=== PATIENT | male | born 1965 | race Two or more races ===

== ENCOUNTER 2023-11-04 14:13 | Emergency (ER) | payer MEDICAID, OTHER ==
[~2023-11-04] VITALS: Ht 190.5 cm; Wt 88.6 kg
[2023-11-04 14:25] VITALS: BP 119/77; PULSE 76; RESP 18; O2SAT 100
== END 2023-11-05 02:24 | disposition home or self-care (01) ==
LOC: ER 14:13 → EDBD 14:13 → ER 15:48
DX: S60.221A Contusion of right hand, initial encounter (principal); I10 Essential (primary) hypertension; E78.5 Hyperlipidemia, unspecified; I25.10 Atherosclerotic heart disease of native coronary artery without angina pectoris; F17.210 Nicotine dependence, cigarettes, uncomplicated; F15.90 Other stimulant use, unspecified, uncomplicated; Z86.73 Personal history of transient ischemic attack (TIA), and cerebral infarction without residual deficits; Z98.890 Other specified postprocedural states; W22.8XXA Striking against or struck by other objects, initial encounter; Y93.89 Activity, other specified; Y92.89 Other specified places as the place of occurrence of the external cause; Y99.8 Other external cause status
CPT/HCPCS: 73120

== ENCOUNTER 2024-10-13 19:09 | Emergency (ER) | payer MEDICAID ==
[~2024-10-13] VITALS: Ht 180.3 cm; Wt 102.3 kg
[2024-10-13] MEDS: TETANUS-DIPTH-ACEL PERTUSSIS 0.5ML SYR Tdap IM ONE (20:00)
[2024-10-13] MEDS: LIDOCAINE 2% TOPICAL JELLY 5 ML URJT TOP ONE (20:00)
--- NOTE | 2024-10-13 20:00 | ED.PDOC ---
Maria Dolores. 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 Patient was reportedly found in his room on the floor with a laceration on the top of his head. Patient was alert, but could not recall how he ended up on the floor. Noted was an empty bottle of liquor on his bed. On arrival to the ER, patient is alert, denies any injury other than on the top of his head, and when asked how he ended up on the floor, states "inebriated." He denies any recent illness, chest pain, shortness a breath, vision changes or new focal weakness. Chief Complaint: Fall Injury Time Seen by MD: 19:36 Primary Care Provider: HALLEY Kelley notes: Nurses Notes, Solar Crew Member Notes, Medications, Allergies Allergies: Coded Allergies: No Known Drug Allergy (Verified Allergy, Unknown, 11/04/23) Home Meds Active Scripts Bacitracin (Bacitracin Oint) 1 Applic Ap, 1 APPLIC TOP TID, #30 GM Apply to wound t.i.d. 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 Past Medical History PAST MEDICAL HISTORY: CAD, CVA, High Lipids, HTN Surgical History: CABG Family History Family History: No family hx of Cancer, No family hx of DM, Family hx of heart tavares Social History Smoker: Cigarettes Alcohol: Denies ETOH Use Drugs: Marijuana Lives In: Home All Other Systems: Reviewed and Negative (Comprehensive systems review obtained and negative except for what is stated in the HPI.) Physical Exam General Appearance: No Apparent Distress HEENT: PERRL/EOMI, Other (Approximate 2.5 cm superficial irregular laceration on the top of the scalp) Neck: Full Range of Motion, Non-Tender, Normal Inspection, Supple Respiratory: Lungs Clear, No Accessory Muscle Use, No Respiratory Distress, Normal Breath Sounds Cardiovascular: No Edema, No JVD, Regular Rate/Rhythm Breast Exam: Deferred Gastrointestinal: Non Tender, Soft Genitalia: Deferred Pelvic: Deferred Rectal: Deferred Extremities: Non-tender, No pedal edema Neurologic: Alert (Oriented x4), Normal Affect, Normal Mood, Other (Chronic Left lower extremity weakness, motor 5/5 all other extremities, sensation grossly intact) Cerebellar Function: NOT DONE Reflexes: NOT DONE Skin: Dry, Normal Color, Warm, Other (Approximate 2.5 cm irregular superficial laceration top of scalp. No bleeding. Mild underlying soft tissue swelling.) Lymphatic: NOT DONE Was a procedure done? Was a procedure done?: No Differential Diagnosis Multiple Trauma: Closed Head Injury, Cardiac Injury, Cerebral Contusion, Spine Injury, Contusion, Encephalopathy, Other (MA, CVA, alcohol/drug intoxication, among others) X-Ray, Labs, Meds, VS Vital Signs Date Time Temp Pulse Resp B/P (MAP) Pulse Ox O2 Delivery O2 Flow Rate FiO2 10/13/24 20:21 66 10/13/24 20:10 97.6 72 16 156/88 (110) 96 97.6 10/13/24 20:10 72 16 96 Room Air* 0 21 10/13/24 19:19 98.6 75 16 131/83 (99) 98 Lab Test 10/13/24 22:30 10/13/24 20:30 10/13/24 19:00 Range/Units Troponin I High Sensitivity Pending 22 </=54 ng/L White Blood Count 11.0 H 4.4-10.8 10^3/uL Red Blood Count 5.14 4.5-5.90 10^6/uL Hemoglobin 16.8 13.5-17.5 g/dL Hematocrit 48.2 41.0-53.0 % Mean Corpuscular Volume 93.8 80.0-100.0 fL Mean Corpuscular Hemoglobin 32.6 H 28.0-32.0 pg Mean Corpuscular Hemoglobin Concent 34.8 32.0-36.0 g/dL Red Cell Distribution Width 14.8 H 11.8-14.3 % Platelet Count 156 140-450 10^3/uL Mean Platelet Volume 11.5 H 6.9-10.8 fL Neutrophils (%) (Auto) 62.2 37.0-80.0 % Lymphocytes (%) (Auto) 28.6 10.0-50.0 % Monocytes (%) (Auto) 4.4 0.0-12.0 % Eosinophils (%) (Auto) 3.6 0.0-7.0 % Basophils (%) (Auto) 1.2 0.0-2.0 % Neutrophils # (Auto) 6.8 1.6-8.6 10 ^3/uL Lymphocytes # (Auto) 3.1 0.4-5.4 10 ^3/uL Monocytes # (Auto) 0.5 0-1.3 10 ^3/uL Eosinophils # (Auto) 0.4 0-0.8 10 ^3/uL Basophils # (Auto) 0.1 0-0.2 10 ^3/uL Nucleated Red Blood Cells 0.1 % Sodium Level 142 136-145 mmol/L Potassium Level 3.5 3.5-5.1 mmol/L Chloride Level 109 H 98-107 mmol/L Carbon Dioxide Level 21 20-31 mmol/L Anion Gap 12 5-15 Blood Urea Nitrogen 11 9-23 mg/dL Creatinine 0.88 0.700-1.30 mg/dL Glomerular Filtration Rate Calc 99 >90 mL/min BUN/Creatinine Ratio 12.5 10.0-20.0 Serum Glucose 97 74-106 mg/dL Calcium Level 9.4 8.7-10.4 mg/dL B-Type Natriuretic Peptide 83.70 0-100 pg/mL Plasma/Serum Blood Alcohol 296.9 H <10 mg/dL Urine Color Colorless Yellow Urine Clarity Clear Clear Urine pH 6.0 5.0-9.0 Urine Specific [place] 1.003 1.001-1.035 Urine Protein Negative Negative Urine Ketones Negative Negative Urine Blood Negative Negative /uL Urine Nitrite Negative Negative Urine Bilirubin Negative Negative Urine Urobilinogen Normal Negative mg/dL Urine Leukocyte Esterase Negative Negative /uL Urine RBC None seen 0 - 3 /hpf Urine Microscopic WBC 0-3 /HPF Urine Squamous Epithelial Cells None seen <5 /hpf Urine Bacteria None seen None Seen /hpf Urine Glucose Normal Normal mg/dL Urine Opiates Screen Neg NEGATIVE Urine Fentanyl Screen Neg NEGATIVE Urine Barbiturates Screen Neg NEGATIVE Urine Phencyclidine Screen Neg NEGATIVE Urine Amphetamines Screen Neg NEGATIVE Urine Benzodiazepines Screen Neg NEGATIVE Urine Cocaine Screen Neg NEGATIVE Urine Cannabinoids Screen Pos NEGATIVE Current Medications Medications (Trade) Dose Ordered Sig/Nataly Route Start Time Stop Time Status Last Admin Sodium Chloride 1,000 ml @ 1,000 mls/hr Q1H ONCE IV 10/13/24 21:30 10/13/24 22:29 DC 10/13/24 21:44 Acetaminophen/ Hydrocodone Bitart ([place] 10/325MG Tab) 1 tab ONCE ONCE PO 10/13/24 21:30 10/13/24 21:41 DC 10/13/24 21:45 PROCEDURE(s): HWOCT - HEAD WITHOUT CONTRAST REASON: head injury ORDER NUMBER(s): [id number], ACCESSION NUMBER(s): [id number] EXAM: CT HEAD WITHOUT CONTRAST INDICATION: head injury TECHNIQUE: CT of the head without intravenous contrast. Radiation Dose Information: CT Dose: CTDI volume is 55.69 mGy. Dose-length product is 1604.63 mGy*cm The dose indicators for CT are the volume Computed Tomography (CT) Dose Index (CTDIvol) and the Dose Length Product (DLP), and are measured in units of mGy a nd mGy-cm, respectively. These indicators are not patient dose, but values generated from the CT scanner acquisition factors. The report includes radiation exposure data for exposures received during this examination. COMPARISON: None FINDINGS: There is no evidence of acute intracranial hemorrhage, extra-axial collection, mass effect, midline shift, herniation or hydrocephalus. The ventricles, sulci and cisterns are age appropriate. The okeefe-white differentiation is intact. Patchy periventricular and subcortical white matter hypoattenuation is nonspecific but may be related to small vessel ischemic disease. The visualized paranasal sinuses and mastoid air cells are clear. The surrounding soft tissues and osseous structures are unremarkable. IMPRESSION: 1. No acute intracranial hemorrhage. 2. No CT findings of territorial ischemia. 3. No CT findings displaced skull fracture. EDURE(s): CS2 - CERVICAL WITHOUT CONTRAST REASON: unwitnessed fall, etoh ORDER NUMBER(s): [id number], ACCESSION NUMBER(s): [id number] EXAM: CT CERVICAL WITHOUT CONTRAST INDICATION: unwitnessed fall, etoh EXAM DATE: 10/13/2024 07:48 PM COMPARISON: None TECHNIQUE: Multiple axial CT images of the cervical spine were obtained using bone algorithm. Axial and coronal reformatting was done. Bone and soft tissue windows were reviewed. Radiation Dose Information: CT Dose: CTDI volume is 23.31 mGy. Dose-length product is 1604.63 mGy*cm FINDINGS: The cervical alignment is intact. No acute cervical spine fracture is identified. The vertebral body heights are intact. No suspicious osseous lesions are identified. Multilevel moderate to severe degenerative changes of the cervical spine. There is no prevertebral soft tissue swelling. IMPRESSION: No evidence of acute cervical spine fracture or traumatic malalignment. All CT scans at this medical facility are performed using dose modulation techniques as appropriate to a performed exam including the following: Automated exposure control was utilized; adjustment of the MA and/or KV according to patient size; and use of iterative reconstruction technique. 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 Vitals unremarkable Exam remarkable for a 2.5 cm irregular superficial laceration on the top of the head Rhythm strip independently interpreted by me: Sinus rhythm, rate 75, no ectopy. CT head without contrast IMPRESSION: 1. No acute intracranial hemorrhage. 2. No CT findings of territorial ischemia. 3. No CT findings displaced skull fracture. CT cervical spine without contrast IMPRESSION: No evidence of acute cervical spine fracture or traumatic malalignment. CBC remarkable for WBC 11, metabolic panel unremarkable, BNP normal, troponin negative, UA unremarkable, alcohol 296.9, drug screen positive cannabinoids Patient treated with the following in the ED: Tdap 0.5 mL IM, wound cleansing with normal saline/Betadine and application of bacitracin, 1 L 0.9 normal saline IV bolus, [place] 10/325 mg 1 tab p.o. On re-evaluation, patient appears to be back to his neurologic baseline. Vitals are stable. Scalp wound is superficial and does not require wound closure. Patient appears stable for discharge back to [facility]. We will arrange for transport in the morning, as far most does not have transport at this hour. Time of 1ST Reevaluation: 20:06 Reevaluation 1ST: Unchanged Patient Education/Counseling: Diagnosis, Treatment Family Education/Counseling: No Family Present Departure 1 Departure Time of Disposition: 21:33 Impression: Primary Impression: Superficial laceration of scalp Qualified Codes: S01.01XA - Laceration without foreign body of scalp, initial encounter Additional Impressions: Alcohol intoxication Qualified Codes: F10.929 - Alcohol use, unspecified with intoxication, unspecified Fall Qualified Codes: W19.XXXA - Unspecified fall, initial encounter Disposition: 03 [facility] Condition: Stable Additional Instructions: Follow-up with your primary doctor in 2 days for wound check in 7-10 days for staple removal. e-Prescriptions Bacitracin (Bacitracin Oint) 1 Applic Ap 1 APPLIC TOP TID, #30 GM Apply to wound t.i.d. until healed Prov: DOMINIC HAMILTON MD 10/13/24 Discharged With: Bell Ringer Critical Care Note Critical Care Time?: No Stability Stability form required: No Heart Score Heart Score: Heart Score Response (Comments) Value History N/A 0 EKG N/A 0 Age N/A 0 Risk Factors N/A 0 Troponin N/A 0 Total 0 I personally scribed for DOMINIC HAMILTON MD ([email or web address]) on 10/13/24 at 20:18. Electronically submitted by Johnie Kohli ([email or web address]). DOMINIC HAMILTON MD Oct 13, 2024 20:00
[2024-10-13 20:08] LABS: Urine Bacteria None Seen /hpf (None Seen)
[2024-10-13 20:10] VITALS: PULSE 72; RESP 16; O2SAT 96
--- NOTE | 2024-10-13 20:22 | DVH ---
EXAM: CT CERVICAL WITHOUT CONTRAST INDICATION: unwitnessed fall, etoh EXAM DATE: 10/13/2024 07:48 PM COMPARISON: None TECHNIQUE: Multiple axial CT images of the cervical spine were obtained using bone algorithm. Axial a nd coronal reformatting was done. Bone and soft tissue windows were reviewed. Radiation Dose Information: CT Dose: CTDI volume is 23.31 mGy. Dose-length product is 1604.63 mGy*cm FINDINGS: The cervical alignment is intact. No acute cervical spine fracture is identified. The vertebral body heights are intact. No suspicious osseous lesions are identified. Multilevel moderate to severe degenerative changes of the cervical spine. There is no prevertebral soft tissue swelling. IMPRESSION: No evidence of acute cervical spine fracture or traumatic malalignment. All CT scans at this medical facility are performed using dose modulation techniques as appropriate t o a performed exam including the following: Automated exposure control was utilized; adjustment of th e MA and/or KV according to patient size; and use of iterative reconstruction technique.
--- NOTE | 2024-10-13 20:24 | DVH ---
EXAM: CT HEAD WITHOUT CONTRAST INDICATION: head injury TECHNIQUE: CT of the head without intravenous contrast. Radiation Dose Information: CT Dose: CTDI volume is 55.69 mGy. Dose-length product is 1604.63 mGy*cm The dose indicators for CT are the volume Computed Tomography (CT) Dose Index (CTDIvol) and the Dose Length Product (DLP), and are measured in units of mGy and mGy-cm, respectively. These indicators are not patient dose, but values generated from the CT scanner acquisition factors. The report includes radiation exposure data for exposures received during this examination. COMPARISON: None FINDINGS: There is no evidence of acute intracranial hemorrhage, extra-axial collection, mass effect, midline s hift, herniation or hydrocephalus. The ventricles, sulci and cisterns are age appropriate. The okeefe-white differentiation is intact. Patchy periventricular and subcortical white matter hypoattenuation is nonspecific but may be related to small vessel ischemic disease. The visualized paranasal sinuses and mastoid air cells are clear. The surrounding soft tissues and osseous structures are unremarkable. IMPRESSION: 1. No acute intracranial hemorrhage. 2. No CT findings of territorial ischemia. 3. No CT findings displaced skull fracture.
[2024-10-13 20:53] LABS: Basophils # (auto) 0.1 10 ^3/uL (0-0.2); Basophils % (auto) 1.2 % (0.0-2.0); Eosinophils # (auto) 0.4 10 ^3/uL (0-0.8); Eosinophils % (auto) 3.6 % (0.0-7.0); Hematocrit 48.2 % (41.0-53.0); Hemoglobin 16.8 g/dL (13.5-17.5); Lymphocytes # (auto) 3.1 10 ^3/uL (0.4-5.4); Lymphocytes % (auto) 28.6 % (10.0-50.0); Mean Corpuscular Hemoglobin 32.6 pg (28.0-32.0); Mean Corpuscular Hgb Conc. 34.8 g/dL (32.0-36.0); Mean Corpuscular Volume 93.8 fL (80.0-100.0); Monocytes # (auto) 0.5 10 ^3/uL (0-1.3); Monocytes % (auto) 4.4 % (0.0-12.0); Neutrophils # (auto) 6.8 10 ^3/uL (1.6-8.6); Neutrophils % (auto) 62.2 % (37.0-80.0); Nucleated Red Blood Cells % 0.1 %; Platelet Count (auto) 156 10^3/uL (140-450); Red Blood Cells 5.14 10^6/uL (4.5-5.90); Red Cell Distribution Width 14.8 % (11.8-14.3)
[2024-10-13 21:02] LABS: Urine Blood Negative /uL (Negative); Urine Clarity Clear (Clear); Urine Color Colorless (Yellow); Urine Protein, UAD Negative (Negative); Urine Specific Gravity 1.003 (1.001-1.035); Urine Squamous Epithelial Cell None Seen /hpf (<5); Urine Urobilinogen Normal (Negative)
[2024-10-13 21:03] LABS: Sodium 142 mmol/L (136-145)
[2024-10-13 21:04] LABS: Anion Gap 12 (5-15); Calcium 9.4 mg/dL (8.7-10.4); Carbon Dioxide 21 mmol/L (20-31)
[2024-10-13 21:09] LABS: BUN/Creatinine Ratio 12.5 (10.0-20.0); Blood Urea Nitrogen 11 mg/dL (9-23); Glucose 97 mg/dL (74-106)
[2024-10-13 21:10] LABS: Opiate Scree,Urine Neg (NEGATIVE)
[2024-10-13 21:10] LABS: Blood Alcohol 296.9 mg/dL (<10)
[2024-10-13 21:15] LABS: Chloride 109 mmol/L (98-107); Potassium 3.5 mmol/L (3.5-5.1)
[2024-10-13 21:16] LABS: Amphetamine Screen, Urine Neg (NEGATIVE); Barbiturate Scree,Urine Neg (NEGATIVE); Benzodiazephine Screen, Urine Neg (NEGATIVE); Cannabinoid Screen, Urine Pos (NEGATIVE); Cocaine Screen, Urine Neg (NEGATIVE); Phencyclidine Screen, Urine Neg (NEGATIVE)
[2024-10-13] MEDS ORDERED: BAC09TP TOP (21:34)
[2024-10-13] MEDS: SODIUM CHLORIDE 0.9% 1,000 ML IV ONE (21:44)
[2024-10-13] MEDS: HYDROcodone-ACET 10/325MG TAB PO ONE (21:45)
--- NOTE | 2024-10-14 05:40 | ECG ---
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
[2024-10-14 07:00] VITALS: BP 155/90; PULSE 70; RESP 16; TEMP 98.6; O2SAT 96
== END 2024-10-14 08:54 | disposition home or self-care (01) ==
LOC: EDBD 19:09 → ER 19:09
DX: S01.01XA Laceration without foreign body of scalp, initial encounter (principal); F10.129 Alcohol abuse with intoxication, unspecified; I25.10 Atherosclerotic heart disease of native coronary artery without angina pectoris; Z86.73 Personal history of transient ischemic attack (TIA), and cerebral infarction without residual deficits; E78.5 Hyperlipidemia, unspecified; I10 Essential (primary) hypertension; Z95.1 Presence of aortocoronary bypass graft; F17.210 Nicotine dependence, cigarettes, uncomplicated; Z79.899 Other long term (current) drug therapy; Z99.3 Dependence on wheelchair; W19.XXXA Unspecified fall, initial encounter; Y93.89 Activity, other specified; Y92.89 Other specified places as the place of occurrence of the external cause; Y99.8 Other external cause status; Y90.9 Presence of alcohol in blood, level not specified
CPT/HCPCS: 36415; 70450; 72125; 80048; 80307; 80320; 81001; 83880; 84484; 85025; 93005; 96360; 99284; J7030; 90715

== ENCOUNTER 2025-04-22 18:06 | Inpatient (IN) | payer MEDICAID ==
[~2025-04-22] VITALS: Ht 185.4 cm; Wt 91.7 kg
[~2025-04-22 18:06] MED LIST: BAC09TP TOP
--- NOTE | 2025-04-22 18:35 | ECG ---
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
--- NOTE | 2025-04-22 18:38 | ED.PDOC ---
Altered Mental Status HPI Comments HPI: 59 year old male presents to the ED via EMS with a chief complaint of ALOC onset today (04/22/25). Per EMS, patient is from [facility] assisted living facility, staff noticed patient began experiencing slurred speech around 14:00, around 17:30 they found patient altered. EMS also states patients BG was 109, pupils were reactive, dilated, patient had a strong ETOH smell, staff stated patient took Boaz for pain. Upon ED arrival, patient is altered, responses to sternal rub. Patient is a poor historian, not answering questions. No other symptoms or modifying factors present at this time. Initial Vitals BP: 115/61 HR: 70 RR: 18 O2: 97% Temp: 98.0 F Past Medical History: CVA,CAD, HLD, HTN, a-fib, alcohol abuse Past Surgical History: CABG Social History: heavy alcohol user, smokes marijuana, smokes cigarettes Medications: Lorazepam, aspirin, Lasix Allergies: NKDA RUBY: ALOC, ETOH, NORCO, FOREMOST, CVA HPI: Poor Historian. Past Medical History: History of alcohol abuse. Past Surgical History: REVIEW OF SYSTEMS: Review of systems limited given the patient's ALOC. History obtained from [facility]. CONSTITUTIONAL: Denies acute: fever, diaphoresis, chills, HEAD: Denies acute: headache, photophobia Eyes: Denies acute: Double vision, vision loss, eye pain, eye discharge. EARS: Denies acute: tinnitus, hearing loss, ear discharge, ear pain, THROAT: Denies acute: sore throat, swelling, difficulty swallowing , pain with swallowi ng, change in voice. NECK: Denies acute: neck pain, neck swelling, stiff neck. HEART: Denies acute : chest pain, palpitations, LUNGS: Denies acute: SOB, wheezing, cough, hemoptysis ABDOMEN: Denies acute: abdominal pain, Nausea, Vomiting, diarrhea, melena , hematemesis, hematochezia SKIN: Denies acute: rash, redness, lesions, itchiness. EXTREMITIES: Denies acute: calf pain, numbness, tingling, weakness, denies pain in extremity. Denies acute: Low back pain. Neuro: Denies acute: focal neurological deficit, motor or sensory focal neurological deficit, tremors, seizure like activity, confusion, dizziness loss of bowel or bladder function, cauda equina like symptoms. : Denies acute: dysuria, hematuria, flank pain, increase in urinary frequency. PSYCH: Denies acute: hallucination, suicidal ideation, homicidal ideation. PHYSICAL EXAM: General: -----no---acute distress, awake and alert. Head: normocephalic, atraumatic. Neck: supple, trachea is midline, no swelling. Throat: Normal phonation. Eyes:, no erythema, no purulent discharge, no proptosis, no icterus. Heart: regular rate, regular rhythm, no significant murmur appreciated. Lungs: no apparent respiratory distress, No wheezing, no rhonchi, no crackles. No stridors Clear to auscultation bilaterally. Abdomen: , non distended, soft, no guarding, no rebound, + bowel sounds. Neuro: Moves to painful stimuli sternal rub. History of stroke with deficit. Skin: no petechia, no purpura, no cyanosis, non-pale, not jaundice. Lower extremities: --no - Pitting edema no deformity, no focal swelling, no calf TTP. Makes eye contact. moves all four extremities. Face: no apparent facial droop. Pupils are reactive to light bilaterally. ED COURSE: DISCLAIMER: This medical document was created using an electronic medical record system with voice recognition software and computerized dictation system. Although this document has been carefully reviewed, there might still be some phonetic and typographical errors. Occasional wrong-word or "sound-alike" substitutions may have occurred due to the inherent limitations of voice recognition software. These areas are purely typographical due to imperfections of the software programs and do not reflect any compromise in the patient's medical care. Please read the chart carefully and recognize, using context, where these substitutions have occurred. Chief Complaint: ALOC Time Seen by MD: 18:25 Primary Care Provider: HALLEY Reviewed Notes: Medications, Allergies Allergies: Coded Allergies: No Known Drug Allergy (Verified Allergy, Unknown, 11/04/23) Home Meds Active Scripts Bacitracin (Bacitracin Oint) 1 Applic Ap, 1 APPLIC TOP TID, #30 GM Apply to wound t.i.d. until healed Prov:DOMINIC HAMILTON MD 10/13/24 Reported Medications Zolpidem Tartrate (Ambien) 10 Mg Tab, 5 MG PO HS, TAB 04/23/25 Trazodone Hcl (Trazodone Hcl) 50 Mg Tab, 50 MG PO HS, MG 04/23/25 Topiramate (Topamax) 50 Mg Tab, 1 TAB PO BID, #60 TAB 1 Refill 04/23/25 Spironolactone (Aldactone) 25 Mg Tab, 1 TAB PO DAILY, #90 TAB 1 Refill 04/23/25 Sertraline Hcl (Zoloft) 25 Mg Tab, 1 TAB PO DAILY, #30 TAB 2 Refills 04/23/25 Pantoprazole Sodium Sesquihydr (Protonix) 40 Mg Tab, 40 MG PO DAILY, #30 TAB 04/23/25 Ondansetron HCl (Ondansetron) 4 Mg Tab, 4 MG PO Q8HPRN, TAB 04/23/25 Metoprolol Succinate (Metoprolol Succinate Er) 25 Mg Tab, 12.5 MG PO DAILY for 30 Days, MG 04/23/25 Melatonin (KP MELATONIN) 3 Mg Tab, 6 MG PO HS PRN for FOR INSOMNIA, TAB 04/23/25 Losartan Potassium (Losartan Potassium) 25 Mg Tab, 12.5 MG PO DAILY for 30 Days, MG 04/23/25 Loperamide Hcl (Anti-Diarrheal) 2 Mg Tab, 2 MG PO Q6HPRN, TAB 04/23/25 Acetaminophen (Acetaminophen) 325 Mg Tab, 650 MG PO Q6HPRN PRN for MILD PAIN for 30 Days, MG 0 Refills 04/23/25 Lorazepam (Ativan) 0.5 Mg Tab, 1 MG PO Q6HPRN, TAB 04/23/25 Loratadine (Claritin) 10 Mg Tab, 1 TAB PO DAILY, #30 TAB 5 Refills 04/23/25 Oxycodone W/ Acetaminophen (Percocet 5/325MG) 1 Tab Tb, 1 TAB PO QID, #120 TAB 04/23/25 Gabapentin (Gabapentin) 300 Mg Cap, 400 MG PO TID for 30 Days, MG 04/23/25 Furosemide (Lasix) 40 Mg Tab, 40 MG PO DAILY, TAB 04/23/25 Fluticasone Propionate (Fluticasone Propionate) 0.05 % Cre, 50 MCG MARJORIE BID for 30 Days, MCG 04/23/25 Atorvastatin Calcium (ATORVASTATIN CALCIUM) 80 Mg Tab, 1 TAB PO HS, #30 TAB 5 Refills 04/23/25 Aspirin (Aspir-Low) 81 Mg Tab, 81 MG PO DAILY for 30 Days, MG 04/23/25 Aripiprazole (Abilify) 2 Mg Tab, 5 MG PO HS, TAB 04/23/25 Information Source: Emergency Med Personnel Mode of Arrival: EMS Severity: Moderate Timing: Hours Duration: Since onset Prehospital treatment: None Quality: Decreased Alertness, Change in Behavior Recent: None History of: CVA Associated Signs and Symptoms: Slurred Speech Past Medical History PAST MEDICAL HISTORY: CAD, CVA, High Lipids, HTN Surgical History: CABG Family History Family History: No family hx of Cancer, No family hx of DM, Family hx of heart tavares Social History Smoker: Cigarettes Alcohol: Heavy Drugs: Marijuana Lives In: Home Was a procedure done? Was a procedure done?: No Differential Diagnosis (ALOC) Differential Diagnosis: Dehydration, Hypoglycemia, DKA, Encephalopathy, Meningitis, Sepsis, Hypoxemia, Seizure, Closed Head Injury, CVA, Mass Lesion, SAH, Drug Overdose, ETOH Intoxication, Heart Failure, Renal Failure, Other (DDX include CVA, TGA, cerebellar ischemia/infarct, carotid stenosis, Intracranial mass/infection/bleed, encephalopathy, electrolyte abnormality, thyroid disease, hydrocephalus, hypoglycemia, drug toxicity, cardiac arrhythmia, seizure, infection in the elderly, Hyperammonemia., kidney failure., sepsis.) X-Ray, Labs, Meds, VS Vital Signs Date Time Temp Pulse Resp B/P (MAP) Pulse Ox O2 Delivery O2 Flow Rate FiO2 04/22/25 20:00 98.6 69 15 121/75 (90) 97 98.6 04/22/25 19:45 Room Air* 0 21 04/22/25 18:50 73 22 122/75 (91) 97 04/22/25 18:21 70 04/22/25 18:06 98.0 70 18 115/61 97 98.0 Lab Test 04/22/25 21:01 04/22/25 19:56 04/22/25 19:46 04/22/25 18:53 Range/Units Lactic Acid Level 2.3 *H 2.5 *H 0.4-2.0 mmol/L Magnesium Level 2.3 2.3 1.6-2.6 mg/dL Troponin I High Sensitivity 20 20 17 </=54 ng/L Vitamin B12 Level 373 211-911 pg/mL Folic Acid 13.85 >5.38 ng/mL Thyroid Stimulating Hormone (TSH) 0.67 0.55-4.78 uIU/mL Urine Color Colorless Yellow Urine Clarity Clear Clear Urine pH 6.0 5.0-9.0 Urine Specific [employer] 1.004 1.001-1.035 Urine Protein Negative Negative Urine Ketones Negative Negative Urine Blood Negative Negative /uL Urine Nitrite Negative Negative Urine Bilirubin Negative Negative Urine Urobilinogen Normal Negative mg/dL Urine Leukocyte Esterase Negative Negative /uL Urine RBC 1 0 - 3 /hpf Urine Microscopic WBC < 1 0-3 /HPF Urine Squamous Epithelial Cells None seen <5 /hpf Urine Bacteria None seen None Seen /hpf Urine Glucose Normal Normal mg/dL Urine Opiates Screen Neg NEGATIVE Urine Fentanyl Screen Neg NEGATIVE Urine Barbiturates Screen Neg NEGATIVE Urine Phencyclidine Screen Neg NEGATIVE Urine Amphetamines Screen Neg NEGATIVE Urine Benzodiazepines Screen Neg NEGATIVE Urine Cocaine Screen Neg NEGATIVE Urine Cannabinoids Screen Pos NEGATIVE White Blood Count 9.1 4.4-10.8 10^3/uL Red Blood Count 5.19 4.5-5.90 10^6/uL Hemoglobin 17.0 13.5-17.5 g/dL Hematocrit 49.5 41.0-53.0 % Mean Corpuscular Volume 95.4 80.0-100.0 fL Mean Corpuscular Hemoglobin 32.7 H 28.0-32.0 pg Mean Corpuscular Hemoglobin Concent 34.3 32.0-36.0 g/dL Red Cell Distribution Width 13.9 11.8-14.3 % Platelet Count 130 L 140-450 10^3/uL Mean Platelet Volume 10.6 6.9-10.8 fL Neutrophils (%) (Auto) 68.2 37.0-80.0 % Lymphocytes (%) (Auto) 22.3 10.0-50.0 % Monocytes (%) (Auto) 4.9 0.0-12.0 % Eosinophils (%) (Auto) 3.7 0.0-7.0 % Basophils (%) (Auto) 0.9 0.0-2.0 % Neutrophils # (Auto) 6.2 1.6-8.6 10 ^3/uL Lymphocytes # (Auto) 2.0 0.4-5.4 10 ^3/uL Monocytes # (Auto) 0.4 0-1.3 10 ^3/uL Eosinophils # (Auto) 0.3 0-0.8 10 ^3/uL Basophils # (Auto) 0.1 0-0.2 10 ^3/uL Nucleated Red Blood Cells 0.1 % Sodium Level 142 136-145 mmol/L Potassium Level 4.3 3.5-5.1 mmol/L Chloride Level 113 H 98-107 mmol/L Carbon Dioxide Level 22 20-31 mmol/L Anion Gap 7 5-15 Blood Urea Nitrogen 5 L 9-23 mg/dL Creatinine 0.90 0.700-1.30 mg/dL Glomerular Filtration Rate Calc 98 >90 mL/min BUN/Creatinine Ratio 5.6 L 10.0-20.0 Serum Glucose 104 74-106 mg/dL Calcium Level 8.5 L 8.7-10.4 mg/dL Total Bilirubin 0.3 0.2-1.0 mg/dL Aspartate Amino Transferase (AST) 57 H 13-40 U/L Alanine Aminotransferase (ALT) 68 H 7-40 U/L Alkaline Phosphatase 92 46-116 U/L B-Type Natriuretic Peptide 83.08 0-100 pg/mL Total Protein 7.2 5.7-8.2 g/dL Albumin 4.0 3.2-4.8 g/dL Plasma/Serum Blood Alcohol 390.2 H <10 mg/dL Current Medications Medications (Trade) Dose Ordered Sig/Nataly Route Start Time Stop Time Status Last Admin Sodium Chloride 1,000 ml @ 1,000 mls/hr Q1H ONCE IV 04/22/25 22:00 04/22/25 22:59 DC 04/22/25 23:[address] [address] Ph: [phone] DIAGNOSTIC IMAGING Diagnostic Imaging Report : [id number] Signed PATIENT: ANGELLA RUBY ACCT: [id number] UNIT: [id number] : 1965 LOC: ER ROOM / BED: / AGE / SEX: 59 / M ADM STATUS: REG ER SERVICE 06 ORDERING PHYSICIAN: STEWART PRECIADO DO PROCEDURE(s): HWOCT - HEAD WITHOUT CONTRAST REASON: ALOC ORDER NUMBER(s): [id number], ACCESSION NUMBER(s): [id number] COMPUTERIZED TOMOGRAPHY OF THE HEAD WITHOUT CONTRAST REASON FOR STUDY: ALOC COMPARISON: CT CERVICAL WITHOUT CONTRAST on DOS: 10/13/24, CT HEAD WITHOUT CONTRAST on DOS: 10/13/24 TECHNIQUE: Helical tomographic scans were obtained through the brain. 2-D coronal and sagittal reformatted images are provided. Radiation optimization: All CT scans at this facility use at least one of these dose optimization techniques: Automated exposure control mA and/or kV adjustment per patient size (includes targeted exams where dose is matched to clinical indication) or iterative reconstruction. RADIATION DOSE: CTDI: 57 mGy DLP: 1022 mGy-cm FINDINGS: No suspicious intracranial hyperdensity to suggest acute blood. There is an old lacunar infarct in the right thalamus. There is no mass effect nor midline shift. There is no hydrocephalus. The suprasellar cistern is intact. The calvarium is intact. The visualized mastoid air cells and paranasal sinuses are clear. IMPRESSION: No acute intracranial abnormality. ATED BY: JEFFREY DIAS MD DICTATED DATE/TIME: 04/22/251942 SIGNED BY: JEFFREY DIAS MD SIGNED DATE/TIME: 04/22/251942 CC: [place] [id number] Ph: [phone] DIAGNOSTIC IMAGING Diagnostic Imaging Report : [id number] Signed PATIENT: ANGELLA RUBY ACCT: [id number] UNIT: [id number] : 1965 LOC: ER ROOM / BED: / AGE / SEX: 59 / M ADM STATUS: REG ER SERVICE 1830 ORDERING PHYSICIAN: STEWART PRECIADO DO PROCEDURE(s): CXRP - CHEST PORTABLE REASON: ALOC ORDER NUMBER(s): [id number], ACCESSION NUMBER(s): [id number] EXAM: XY CHEST PORTABLE HISTORY: ALOC TECHNIQUE: 1 view of the chest COMPARISON: None FINDINGS/IMPRESSION: LUNGS: No pleural effusion, consolidation, or pneumothorax . Inconspicuous possible volume overload. MEDIASTINUM: Normal cardiac size. Sternotomy wires. BONES: No acute osseous abnormality OTHER: None ATED BY: CLAUS JONES MD DICTATED DATE/TIME: 04/22/251924 SIGNED BY: CLAUS JONES MD SIGNED DATE/TIME: 04/22/251924 CC: Time of 1ST Reevaluation: 18:55 Reevaluation 1ST: Unchanged Time of 2ND Reevaluation: 00:00 Reevaluation 2ND: Improved Patient Education/Counseling: Diagnosis, Treatment Family Education/Counseling: No Family Present Comments MDM: patient presented with the above HPI.---altered level of consciou sness---workup was initiated. patient was found with the above mentioned diagnosis. the following medications were ordered: please refer to order lists of meds and tests obtained by myself Dr. Preciado. Patient ED course and VS have been stabilized. Patient has been reassessed in the ED and remained in a stable condition. Pertinent incidental findings were discussed with the patient and/or family. Patient/family voices understanding and is agreeable with plan. Patient has been observed in the ED adequate length of time to insure improvement/stability. Escalation of care considered: Consideration of escalation to observation or admission Patient was ADMITTED to the medicine team for further evaluation and treatment of their presentation. All the reports of any imaging studies that were ordered by myself were reviewed by myself. Departure 1 Departure Time of Disposition: 19:51 Impression: Primary Impression: Altered level of consciousness Additional Impression: Alcohol abuse Disposition: ADMITTED INPATIENT Admit to: Tele Condition: Guarded Discharged With: Self Critical Care Note Critical Care Time?: No Heart Score Heart Score: Heart Score Response (Comments) Value History N/A 0 EKG N/A 0 Age N/A 0 Risk Factors N/A 0 Troponin N/A 0 Total 0 I personally scribed for STEWART PRECIADO DO ([email or web address]) on 04/22/25 at 18:38. Electronically submitted by Melva Grimes ([email or web address]). I personally scribed for STEWART PRECIADO DO ([email or web address]) on 04/22/25 at 18:45. Electronically submitted by Melva Grimes ([email or web address]). I personally scribed for STEWART PRECIADO DO ([email or web address]) on 04/22/25 at 20:16. Electronically submitted by Melva Grimes ([email or web address]). STEWART PRECIADO DO Apr 22, 2025 18:38
[2025-04-22] MEDS: NALOXONE HCL 1MG/ML 2ML SYRINGE IV ONE ×2 (18:58→19:46)
[2025-04-22 19:12] LABS: Hematocrit 49.5 % (41.0-53.0); Hemoglobin 17.0 g/dL (13.5-17.5); Mean Corpuscular Hemoglobin 32.7 pg (28.0-32.0); Mean Corpuscular Volume 95.4 fL (80.0-100.0); Nucleated Red Blood Cells % 0.1 %
--- NOTE | 2025-04-22 19:27 | DVH ---
EXAM: XY CHEST PORTABLE HISTORY: ALOC TECHNIQUE: 1 view of the chest COMPARISON: None FINDINGS/IMPRESSION: LUNGS: No pleural effusion, consolidation, or pneumothorax . Inconspicuous possible volume overload. MEDIASTINUM: Normal cardiac size. Sternotomy wires. BONES: No acute osseous abnormality OTHER: None
[2025-04-22 19:29] LABS: Albumin 4.0 g/dL (3.2-4.8); Alkaline Phosphatase 92 U/L (46-116); Anion Gap 7 (5-15); BUN/Creatinine Ratio 5.6 (10.0-20.0); Carbon Dioxide 22 mmol/L (20-31); Glucose 104 mg/dL (74-106); Magnesium 2.3 mg/dL (1.6-2.6); Potassium 4.3 mmol/L (3.5-5.1); Sodium 142 mmol/L (136-145); Total Protein 7.2 g/dL (5.7-8.2)
[2025-04-22 19:30] LABS: Alanine Aminotransferase 68 U/L (7-40); Bilirubin, Total 0.3 mg/dL (0.2-1.0); Blood Urea Nitrogen 5 mg/dL (9-23); Calcium 8.5 mg/dL (8.7-10.4); Chloride 113 mmol/L (98-107)
[2025-04-22 19:40] LABS: Lactic Acid w/Reflex 2.5 mmol/L (0.4-2.0)
--- NOTE | 2025-04-22 19:45 | DVH ---
COMPUTERIZED TOMOGRAPHY OF THE HEAD WITHOUT CONTRAST REASON FOR STUDY: ALOC COMPARISON: CT CERVICAL WITHOUT CONTRAST on DOS: 10/13/24, CT HEAD WITHOUT CONTRAST on DOS: 10/13/24 TECHNIQUE: Helical tomographic scans were obtained through the brain. 2-D coronal and sagittal refor matted images are provided. Radiation optimization: All CT scans at this facility use at least one of these dose optimization techniques: Automated exposure control mA and/or kV adjustment per patient s ize (includes targeted exams where dose is matched to clinical indication) or iterative reconstructio n. RADIATION DOSE: CTDI: 57 mGy DLP: 1022 mGy-cm FINDINGS: No suspicious intracranial hyperdensity to suggest acute blood. There is an old lacunar in farct in the right thalamus. There is no mass effect nor midline shift. There is no hydrocephalus. T he suprasellar cistern is intact. The calvarium is intact. The visualized mastoid air cells and paran catracho sinuses are clear. IMPRESSION: No acute intracranial abnormality.
[2025-04-22 20:17] LABS: Urine Protein, UAD Negative (Negative)
[2025-04-22 20:48] LABS: Opiate Scree,Urine Neg (NEGATIVE)
[2025-04-22 20:49] LABS: Amphetamine Screen, Urine Neg (NEGATIVE); Barbiturate Scree,Urine Neg (NEGATIVE); Benzodiazephine Screen, Urine Neg (NEGATIVE); Cannabinoid Screen, Urine Pos (NEGATIVE); Cocaine Screen, Urine Neg (NEGATIVE); Phencyclidine Screen, Urine Neg (NEGATIVE)
--- NOTE | 2025-04-22 23:40 | DVHHPRES ---
History of Present Illness Resident Creating Document: MY FERGUSON RESIDENT History of Present Illness Mio Mcgill is a 59-year-old male with past medical history of hypertension, history of multiple strokes, hyperlipidemia, alcohol use disorder. Patient is altered and only alert to time, person but not to place. Patient was asking where he was. Patient is a poor historian. But he stated that his last drink was 2 days ago. Patient's CIWA score was 16. Liver ultrasound showed Hepatic steatosis. As per ED physician 59 year old male presents to the ED via EMS with a chief complaint of ALOC onset today (04/22/25). Per EMS, patient is from [facility] facility, staff noticed patient began experiencing slurred speech around 14:00, around 17:30 they found patient altered. EMS also states patients BG was 109, pupils were reactive, dilated, patient had a strong ETOH smell, staff stated patient took [place] for pain. Upon ED arrival, patient is altered, responses to sternal rub. Patient is a poor historian, not answering questions. Patient is admitted for further management. Past surgical history: Unable to take history Social history: Patient admitted to drinking alcohol, smoking weed, cigarettes PCP: Review of Systems Review of Systems Review of system could not be done because patient is confused Allergies: Coded Allergies: No Known Drug Allergy (Verified Allergy, Unknown, 11/04/23) Exam Vital Signs Vital Signs Date Time Temp Pulse Resp B/P (MAP) Pulse Ox O2 Delivery O2 Flow Rate FiO2 04/22/25 20:00 98.6 69 15 121/75 (90) 97 98.6 04/22/25 19:45 Room Air* 0 21 Exam General: Patient alert to time and person not to place A/O x2 HEENT: Normocephalic, atraumatic, moist mucous membranes Respiratory/pulmonary: Clear lungs bilaterally, vesicular murmurs present in almost all lung perera, no associated crackles or wheezes. Cardiovascular: Normal heart sounds S1 and S2 with no associated murmurs Abdomen: Abdomen nondistended, there is no pain to palpation in any of the abdominal quadrants, no palpable masses. Extremities: There is no peripheral edema present at the lower extremities. Peripheral Pulses: 3+ Radial (R). 3+ Radial (L). 3+ Dorsalis pedis (R). 3+ Dorsalis pedis(L) Skin: No rashes or pruritus, there is no sacral edema present at this time. Neurological: Intact cranial nerves with no focal neurologic deficits Labs/Xrays Labs Test 04/22/25 21:01 04/22/25 19:56 04/22/25 18:53 Range/Units Lactic Acid Level 2.3 *H 0.4-2.0 mmol/L Troponin I High Sensitivity 20 </=54 ng/L Urine Color Colorless Yellow Urine Clarity Clear Clear Urine pH 6.0 5.0-9.0 Urine Specific [employer] 1.004 1.001-1.035 Urine Protein Negative Negative Urine Ketones Negative Negative Urine Blood Negative Negative /uL Urine Nitrite Negative Negative Urine Bilirubin Negative Negative Urine Urobilinogen Normal Negative mg/dL Urine Leukocyte Esterase Negative Negative /uL Urine RBC 1 0 - 3 /hpf Urine Microscopic WBC < 1 0-3 /HPF Urine Squamous Epithelial Cells None seen <5 /hpf Urine Bacteria None seen None Seen /hpf Urine Glucose Normal Normal mg/dL Urine Opiates Screen Neg NEGATIVE Urine Fentanyl Screen Neg NEGATIVE Urine Barbiturates Screen Neg NEGATIVE Urine Phencyclidine Screen Neg NEGATIVE Urine Amphetamines Screen Neg NEGATIVE Urine Benzodiazepines Screen Neg NEGATIVE Urine Cocaine Screen Neg NEGATIVE Urine Cannabinoids Screen Pos NEGATIVE White Blood Count 9.1 4.4-10.8 10^3/uL Red Blood Count 5.19 4.5-5.90 10^6/uL Hemoglobin 17.0 13.5-17.5 g/dL Hematocrit 49.5 41.0-53.0 % Mean Corpuscular Volume 95.4 80.0-100.0 fL Mean Corpuscular Hemoglobin 32.7 H 28.0-32.0 pg Mean Corpuscular Hemoglobin Concent 34.3 32.0-36.0 g/dL Red Cell Distribution Width 13.9 11.8-14.3 % Platelet Count 130 L 140-450 10^3/uL Mean Platelet Volume 10.6 6.9-10.8 fL Neutrophils (%) (Auto) 68.2 37.0-80.0 % Lymphocytes (%) (Auto) 22.3 10.0-50.0 % Monocytes (%) (Auto) 4.9 0.0-12.0 % Eosinophils (%) (Auto) 3.7 0.0-7.0 % Basophils (%) (Auto) 0.9 0.0-2.0 % Neutrophils # (Auto) 6.2 1.6-8.6 10 ^3/uL Lymphocytes # (Auto) 2.0 0.4-5.4 10 ^3/uL Monocytes # (Auto) 0.4 0-1.3 10 ^3/uL Eosinophils # (Auto) 0.3 0-0.8 10 ^3/uL Basophils # (Auto) 0.1 0-0.2 10 ^3/uL Nucleated Red Blood Cells 0.1 % Sodium Level 142 136-145 mmol/L Potassium Level 4.3 3.5-5.1 mmol/L Chloride Level 113 H 98-107 mmol/L Carbon Dioxide Level 22 20-31 mmol/L Anion Gap 7 5-15 Blood Urea Nitrogen 5 L 9-23 mg/dL Creatinine 0.90 0.700-1.30 mg/dL Glomerular Filtration Rate Calc 98 >90 mL/min BUN/Creatinine Ratio 5.6 L 10.0-20.0 Serum Glucose 104 74-106 mg/dL Calcium Level 8.5 L 8.7-10.4 mg/dL Magnesium Level 2.3 1.6-2.6 mg/dL Total Bilirubin 0.3 0.2-1.0 mg/dL Aspartate Amino Transferase (AST) 57 H 13-40 U/L Alanine Aminotransferase (ALT) 68 H 7-40 U/L Alkaline Phosphatase 92 46-116 U/L B-Type Natriuretic Peptide 83.08 0-100 pg/mL Total Protein 7.2 5.7-8.2 g/dL Albumin 4.0 3.2-4.8 g/dL Plasma/Serum Blood Alcohol 390.2 H <10 mg/dL SEPSIS Sepsis Screen Date sepsis recognized/suspect: Apr 22, 2025 Time Sepsis recognized/suspect: 1805 Recent Procedure: No On Antibiotic Therapy: No Respiratory Rate >20: No Heart Rate >90: No Temp<36 C (96.8 F) or >38.3 C: No SBP <90 or MAP <65 mmHG: No New Acute Mental Status Change: No Is the patient on CPAP, BIPAP,: No Physician Orders Expediter (04/22/25 ) Chest Portable (04/22/25 18:30) Head Without Contrast (04/22/25 19:07) Insert Man Catheter QSHIFT (04/22/25 19:09) Admit (04/22/25 23:29) Allergies (04/22/25 23:29) Fall Risk Precautions In Place QSHIFT (04/22/25 23:29) Complete Blood Count (04/23/25 04:00) Comprehensive Metabolic Panel (04/23/25 04:00) Condition: Serious (04/22/25 23:29) Thiamine Inj (04/22/25 23:45) Drug Screen (04/22/25:34) Urinalysis (04/22/25:34) Magnesium (04/22/25:34) Folic Acid 1mg Iv Daily (04/22/25 23:45) Ativan 1mg Iv Stat (04/22/25:45) Ativan 1mg Iv Q2hr Prn (04/22/25 23:45) Etoh Withdrawal Assessment (04/22/25 23:34) Etoh Withdrawal Assessment NOW (04/22/25 23:34) Vital Signs Date Time Temp Pulse Resp B/P (MAP) Pulse Ox O2 Delivery O2 Flow Rate FiO2 04/22/25 20:00 98.6 69 15 121/75 (90) 97 98.6 04/22/25 19:45 Room Air* 0 21 04/22/25 18:50 73 22 122/75 (91) 97 04/22/25 18:21 70 04/22/25 18:06 98.0 70 18 115/61 97 98.0 Laboratory Tests Test 04/22/25 18:53 04/22/25 21:01 Lactic Acid Level 2.5 mmol/L (0.4-2.0) *H 2.3 mmol/L (0.4-2.0) *H White Blood Count 9.1 10^3/uL (4.4-10.8) Medications Medications Dose Ordered Sig/Nataly Route Start Time Stop Time Status Last Admin Dose Admin Naloxone HCl 2 mg ONCE ONCE IV 04/22/25 18:30 04/22/25 18:31 DC 04/22/25 18:58 2 MG Assessment/Plan Assessment/Plan Assessment/plan # toxic encephalopathy due to acute alcohol intoxication Head CT Serum alcohol levels UDS # acute alcohol intoxication Thiamine Folic acid Banana bag # acute alcohol withdrawal CIWA score 16 IV Ativan scheduled # transaminitis Liver ultrasound # lactic acidosis Monitor labs # recurrent strokes Echo EKG Continue aspirin and statin # coronary artery disease status post CABG Continue aspirin and statin EKG Echo # history of atrial fibrillation - currently regular rhythm 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 Patel, patient and nurse Plan discussed with: Patient My Orders Orders - MY FERGUSON RESIDENT Procedure Category Date Status Time Admit ADMIT 04/22/25 Transmitted 23:29 Allergies [facility] [place] 04/22/25 In Process 23:29 Fall Risk Precautions [facility] [place] 04/22/[address] 23:29 Complete Blood Count LAB 04/23/25 Verified 04:00 Comprehensive LAB 04/23/25 Verified Metabolic Panel 04:00 Condition: Serious [facility] [place] 04/22/25 In Process 23:29 Thiamine Inj [facility] 04/22/25 Verified 23:45 Drug Screen LAB 04/22/25 Verified 23:34 Urinalysis LAB 04/22/25 Verified 23:34 Magnesium LAB 04/22/25 Verified 23:34 Folic Acid 1mg Iv PHA 04/22/25 Verified Daily 23:45 Ativan 1mg Iv Stat [facility] 04/22/25 Verified 23:45 Ativan 1mg Iv Q2hr Prn [facility] 04/22/25 Verified 23:45 Etoh Withdrawal [facility] [place] 04/22/25 Verified Assessment 23:34 Etoh Withdrawal [facility] [place] 04/22/25 Verified Assessment 23:34 Date of Service: Apr 22, 2025 Billing Provider: PEDRO PATEL MD Common Visit Codes: [id number] INP/OBS CARE (HIGH) Secondary Visit Codes: [id number] CARE PLAN 30 MINUTES MY FERGUSON RESIDENT Apr 22, 2025 23:40 ALICJA NIEVES RESIDENT Apr 23, 2025 08:15
[2025-04-22] MEDS ORDERED: LORazepam 2MG/ML-1ML VIAL IV PRN (23:45)
[2025-04-22] MEDS: SODIUM CHLORIDE 0.9% 1,000 ML IV ONE (23:45)
[2025-04-23] VITALS (10 sets, daily range): BP systolic 127–193; BP diastolic 78–105; PULSE 63–99; RESP 16–20; TEMP 97.7–99.1; O2SAT 94–98
[2025-04-23] MEDS: THIAMINE 100mg/ml INJ (200mg/2ml VIAL) IV ONE ×2 (00:09→11:20)
[2025-04-23] MEDS: LORazepam 2MG/ML-1ML VIAL IV ONE (00:09)
[2025-04-23] MEDS: FOLIC ACID 1 MG in D5W 5% 50 ML INJ ONE ×2 (00:09→13:49)
[2025-04-23] MEDS: FOLIC ACID 1 MG, MAGNESIUM SULF SDV 50% 8 MEQ, MULTIPLE VITAMIN 10 ML, THIAMINE INJ 100... INJ SCH (00:30)
[2025-04-23] MEDS ORDERED: LORazepam 2MG/ML-1ML VIAL IV PRN (00:30)
[2025-04-23] MEDS: ATORVASTATIN 20 MG TAB PO ONE (00:36)
--- NOTE | 2025-04-23 02:09 | DVH ---
INDICATION: alcoholic liver disease TECHNIQUE: Multiple real-time sonographic images were obtained of the right upper quadrant. COMPARISON: None FINDINGS: The liver demonstrates diffusely increased echotexture without focal mass lesions. The live r measures 14.6 cm. Normal hepatopetal portal flow identified. No evidence of abdominal ascites or pl eural effusion. There is no intrahepatic or extrahepatic ductal dilatation. The common duct was not adequately visual ized. The gallbladder is without evidence of stone or sludge. The gallbladder wall measures 0.3 cm and is w ithin normal limits. The right kidney measures 12.1 cm. The right kidney is normal in contour, size, and shape. The echoge nicity is normal. There is no hydronephrosis. The pancreas is not well visualized due to overlying bowel gas. IMPRESSION: 1. Hepatic steatosis. Otherwise, unremarkable right upper quadrant abdominal ultrasound.
[2025-04-23 08:14] LABS: Hematocrit 46.0 % (41.0-53.0); Hemoglobin 16.0 g/dL (13.5-17.5); Mean Corpuscular Hemoglobin 32.7 pg (28.0-32.0); Mean Corpuscular Volume 93.8 fL (80.0-100.0); Nucleated Red Blood Cells % 0.0 %
[2025-04-23 08:31] LABS: Albumin 4.0 g/dL (3.2-4.8); Alkaline Phosphatase 86 U/L (46-116); Anion Gap 9 (5-15); BUN/Creatinine Ratio 12.7 (10.0-20.0); Carbon Dioxide 20 mmol/L (20-31); Glucose 94 mg/dL (74-106); Potassium 4.0 mmol/L (3.5-5.1); Total Protein 7.0 g/dL (5.7-8.2)
[2025-04-23 08:32] LABS: Alanine Aminotransferase 68 U/L (7-40); Blood Urea Nitrogen 8 mg/dL (9-23); Calcium 8.3 mg/dL (8.7-10.4); Chloride 118 mmol/L (98-107); Sodium 147 mmol/L (136-145)
[2025-04-23 08:48] LABS: Bilirubin, Total 0.3 mg/dL (0.2-1.0)
[2025-04-23] MEDS ORDERED: SODIUM CHLORIDE 0.9% 1,000 ML IV SCH (10:15)
[2025-04-23] MEDS: PANTOPRAZOLE 40 MG TAB PO SCH (10:44)
[2025-04-23] MEDS: D5W/SOD CHL 0.45% 1,000 ML IV SCH (11:21)
[2025-04-23 12:14] LABS: Lactic Acid w/Reflex 2.5 mmol/L (0.4-2.0)
--- NOTE | 2025-04-23 13:06 | DVHPNRES ---
Progress Note Date Seen: Apr 23, 2025 Resident Creating Document: LUIGI THOMAS RESIDENT Medical Necessity Reason Pt with a Central, PICC or Fol: No Subjective Review of Systems Patient is 59 years old male with past medical history of hypertension, history of multiple stroke, hyperlipidemia, alcohol use disorder was brought in from [facility] assisted living facility due to altered mental status.As per ED physician 59 year old male presents to the ED via EMS with a chief complaint of ALOC onset today (04/22/25). Per EMS, patient is from [facility] assisted living facility, staff noticed patient began experiencing slurred speech around 14:00, around 17:30 they found patient altered. EMS also states patients BG was 109, pupils were reactive, dilated, patient had a strong ETOH smell, staff stated patient took [place] for pain. Upon ED arrival, patient is altered, responses to sternal rub. Patient is a poor historian, not answering questions.Lab workup revealed lactic acidosis with a lactic acid 2.5> 2.3> 2.5, transaminitis with AST 57, ALT 68. UDS positive for cannabinoids, plasma alcohol 390. Urinalysis negative for UTI. CTA negative for acute intracranial abnormality. Ultrasound of the liver revealed hepatic steatosis. CXR no acute abnormality. Echo 2D revealed LVEF 50%, moderate LVH. Left atrial enlarged. PMH-CVA,CAD, status post CABG, HLD, HTN, A-fib, alcohol abuse PSH- CABG Allergy- NKDA Personal History/ Social History- heavy alcohol user, smokes marijuana, smokes cigarettes Cardiovascular- deny acute chest pain or shortness of breath or cough or palpitation Respiratory denies cough or short of breath or wheezing Gastrointestinal- denies any rectal bleeding, nausea or vomiting Musculoskeletal-denies acute joint swelling or tenderness or redness Neurological- denies acute dysarthria, dysphagia, change in vision Psychiatry- denies depression or SI or HI Skin- denies acute rash or purpura Patient was seen today at bedside, less than chart reviewed. Patient is awake and alert today, reported he had vodka yesterday and also use marijuana. Patient is alert and oriented x3 today. Patient reported feeling some anxiety and has had tremor. Lab workup revealed lactic acidosis with a lactic acid 2.5> 2.3> 2.5, transaminitis with AST 57, ALT 68. UDS positive for cannabinoids, plasma alcohol 390. Urinalysis negative for UTI. Objective vital signs Vital Sign Date Time Temp Pulse Resp B/P (MAP) Pulse Ox O2 Delivery O2 Flow Rate FiO2 04/23/25 12:00 81 20 146/92 (110) 95 04/23/25 07:30 Room Air* 0 21 04/23/25 07:30 98.4 98.4 Total Intake and Output 04/22/25 04/22/25 04/23/25 15:00 23:00 07:00 Intake Total 1000 ml Output Total 2200 ml Balance -1200 ml medications Current Medications Medications Dose Ordered Sig/Nataly Route Start Time Stop Time Status Last Admin Dose Admin Lorazepam 1 mg Q2HPRN PRN IV 04/22/25 23:45 Lorazepam 1 mg Q5MINP PRN IV 04/23/25 00:30 Aspirin 81 mg DAILY PO 04/23/25 10:00 04/23/25 10:13 81 MG Atorvastatin Calcium 40 mg HS PO 04/23/25 22:00 Enoxaparin Sodium 40 mg DAILY SC 04/24/25 10:00 UNV Pantoprazole Sodium 40 mg DAILY@0600 PO 04/23/25 10:30 04/23/25 10:44 40 MG Dextrose/Sodium Chloride 1,000 ml @ 125 mls/hr Q8H IV 04/23/25 10:45 04/23/25 11:21 125 MLS/HR Examination General examination- HEENT- PEERLA, no acute nasal discharge Cardiovascular- S1-S2 audible, rate and rhythm regular, no murmur Respiratory- CTAB, no wheeze or rhonchi Gastrointestinal-nontender, bowel sound+. Nondistended Musculoskeletal-no acute joint swelling or tenderness or redness Lower extremity- Neurological- cranial nerves intact, no acute dysarthria or dysphagia Psychiatry- denies depression or SI or HI Skin- no acute rash or purpura laboratory and microbiology Laboratory Tests 04/23/25 07:44 Test 04/23/25 07:44 Range/Units Serum Glucose 94 74-106 mg/dL Problem List/Assessment/Plan Problem List/Assessment/Plan Assessment and plan # acute metabolic encephalopathy likely due to alcohol intoxication # acute toxic encephalopathy due to above # acute alcohol intoxication with alcohol poisoning -serum alcohol level>350 -patient on [facility] protocol -continue thiamine and folic acid as prescribed -continue IV fluid as prescribed -monitor vitals # CAD, status post CABG # history of CVA # hypertension # hyperlipidemia - Echo 2D revealed LVEF 50%, moderate LVH. Left atrial enlarged. -continue aspirin 81 mg p.o. daily -atorvastatin 40 mg p.o. q.h.s. -nifedipine XL 30 mg p.o. daily -metoprolol 12.5 mg p.o. daily -monitor vitals # history of atrial fibrillation -metoprolol 12.5 mg p.o. daily # substance use disorder -UDS positive for marijuana -patient was counseled about the effect of marijuana on health Goals of care, Code status full code ; discussed with >15 minutes PUD prophylaxis: Pantoprazole DVT prophylaxis: Lovenox Plan discussed with Dr. Ghosh , nursing staff, Total time spent on patient evaluation, chart review, assessment and plan, discussion discussion >35 minutes Plan discussed with: Patient, Other (RN) My Orders My Orders Orders - LUIGI THOMAS Procedure Category Date Status Time Vitamin B1 (Thiamine) LAB 04/23/25 In Process 10:26 Enoxaparin Sodium PHA 04/24/25 Logged (Lovenox) 10:00 Pantoprazole Tablet PHA 04/23/25 In Process (Protonix Tablet) 10:30 D5w/Sod Chl 0.45% PHA 04/23/25 In Process (D5w 1/2ns) 10:45 Sodium Chloride 0.9% PHA 04/23/25 Logged 12:30 Lactic Acid W/ Reflex LAB 04/23/25 Logged Order 19:00 Cardiac DIET 04/23/25 Transmitted Diet-2gna,Lofat,Lochol Lunch LUIGI THOMAS RESIDENT Apr 23, 2025 13:06
--- NOTE | 2025-04-23 13:52 | DVHSR ---
APPROVED REPORT EXAM: Two-dimensional and M-mode echocardiogram with Doppler and color Doppler. Blood Pressure: 135/83 mmHg INDICATION SOB RISK FACTORS Height: 71, Weight: 200 DIMENSIONS LVDd5.0 (3.8-5.7cm)LA (2D)3.8 (1.9-4.0cm)Aortic Root3.7 (2.0-3.7cm) LVDs3.7 (2.5-4.0cm)LA (MM) (1.9-4.0cm)Aortic Cusp Exc1.8 (1.5-2.0cm) EF (%) 50.0 (55-70%)Rt. Atrium4.3 (1.9-4.0cm)Asc. Aorta cm Mitral Valve MitralMitral Stenosis E wave0.90m/sMV Mean GR.mmHg A wave1.29m/sMV Peak GR.mmHg E/A ratio0.72D MVAcm2 DECEL [id number] 1/2 Qgie03sx IVRTmsDop MVA3.31cm2 Aortic Valve Aortic ValveAortic Stenosis V11.18m/[employer] Mean GR.3mmHg V21.32m/[employer] Peak GR.7mmHg LVOT Diameter1.9 (1.8-2.4cm)Doppler AVA2.53cm2 Pulmonic Valve V21.20m/s Conclusion lvef 50% low normal lv function cannot rule out Wall motion changes miloderate lvh normal rv function left atrium enlarged no severe valve abnormaliteis noted
[2025-04-23] MEDS: hydrALAZINE HCL 20 MG/ML VL IV PRN (14:29)
[2025-04-23] MEDS: SODIUM CHLORIDE 0.9% 1,000 ML IV ONE (14:30)
[2025-04-23] MEDS ORDERED: LORA-622 PO (15:43)
[2025-04-23] MEDS ORDERED: FLUT0.05 NAS (15:43)
[2025-04-23] MEDS ORDERED: FURO1TAB31 PO (15:43)
[2025-04-23] MEDS ORDERED: ACET-1881 PO (15:43)
[2025-04-23] MEDS ORDERED: GABA-1250 PO (15:43)
[2025-04-23] MEDS ORDERED: ATOR-47 PO (15:43)
[2025-04-23] MEDS ORDERED: LORA-655 PO (15:43)
[2025-04-23] MEDS ORDERED: LOPE2TAB78 PO (15:43)
[2025-04-23] MEDS ORDERED: PERCOT PO (15:43)
[2025-04-23] MEDS ORDERED: ASPI-543 PO (15:43)
[2025-04-23] MEDS ORDERED: ARIP2TAB PO (15:43)
[2025-04-23] MEDS ORDERED: LOSA-533 PO (15:51)
[2025-04-23] MEDS ORDERED: METO25TA93 PO (15:51)
[2025-04-23] MEDS ORDERED: ONDA-155 PO (15:51)
[2025-04-23] MEDS ORDERED: MELA3TAB27 PO (15:51)
[2025-04-23] MEDS ORDERED: PANT40TA2 PO (15:51)
[2025-04-23] MEDS ORDERED: ZOLP10TA PO (15:52)
[2025-04-23] MEDS ORDERED: TOPI50TA32 PO (15:52)
[2025-04-23] MEDS ORDERED: SPIR25TA PO (15:52)
[2025-04-23] MEDS ORDERED: TRAZ-227 PO (15:52)
[2025-04-23] MEDS ORDERED: SERT25TA84 PO (15:52)
[2025-04-23] MEDS: ATORVASTATIN 20 MG TAB PO SCH (21:41)
[2025-04-23] MEDS ORDERED: ATORVASTATIN 20 MG TAB PO SCH (22:00)
[2025-04-24] VITALS (7 sets, daily range): BP systolic 134–153; BP diastolic 85–89; PULSE 65–82; RESP 16–20; TEMP 98.1–98.7; O2SAT 95–98
[2025-04-24 06:28] LABS: Hematocrit 45.4 % (41.0-53.0); Hemoglobin 15.7 g/dL (13.5-17.5); Mean Corpuscular Hemoglobin 32.2 pg (28.0-32.0); Mean Corpuscular Volume 93.4 fL (80.0-100.0); Nucleated Red Blood Cells % 0.0 %
[2025-04-24 06:52] LABS: Alkaline Phosphatase 91 U/L (46-116); Anion Gap 10 (5-15); BUN/Creatinine Ratio 8.5 (10.0-20.0); Magnesium 1.9 mg/dL (1.6-2.6); Sodium 141 mmol/L (136-145); Total Protein 7.0 g/dL (5.7-8.2)
[2025-04-24 06:53] LABS: Albumin 3.9 g/dL (3.2-4.8); Bilirubin, Total 1.0 mg/dL (0.2-1.0)
[2025-04-24 06:58] LABS: Alanine Aminotransferase 53 U/L (7-40); Blood Urea Nitrogen 5 mg/dL (9-23); Calcium 8.6 mg/dL (8.7-10.4); Carbon Dioxide 18 mmol/L (20-31); Chloride 113 mmol/L (98-107); Glucose 128 mg/dL (74-106); Potassium 3.1 mmol/L (3.5-5.1)
[2025-04-24] MEDS: ENOXAPARIN SOD 40 MG/0.4 ML SYRINGE SC SCH (09:42)
[2025-04-24] MEDS: POTASSIUM CHL 20 Meq TABLET PO ONE (09:54)
[2025-04-24] MEDS: MAGNESIUM SULFATE 1GM/100ML 100 ML IV ONE (09:54)
[2025-04-24] MEDS ORDERED: PATIENTS OWN MEDICATION (Metoprolol Succinate (Metoprolol Succinate Er) 12.5 MG) PO SCH (10:00)
[2025-04-24] MEDS ORDERED: POTA-36 PO (16:52)
--- NOTE | 2025-04-24 16:52 | DVHDSRES ---
Discharge Summary Date of Admission Resident Creating Document: LUIGI THOMAS Apr 22, 2025 at 23:29 Date of Discharge: Apr 24, 2025 Admitting Diagnosis Acute metabolic encephalopathy due to alcohol intoxication Labs/Diagnostic Data: Laboratory Results Test 04/24/25 06:00 04/23/25 17:47 04/23/25 10:52 04/22/25 21:01 White Blood Count 11.1 10^3/uL (4.4-10.8) Red Blood Count 4.86 10^6/uL (4.5-5.90) Hemoglobin 15.7 g/dL (13.5-17.5) Hematocrit 45.4 % (41.0-53.0) Mean Corpuscular Volume 93.4 fL (80.0-100.0) Mean Corpuscular Hemoglobin 32.2 pg (28.0-32.0) Mean Corpuscular Hemoglobin Concent 34.5 g/dL (32.0-36.0) Red Cell Distribution Width 13.7 % (11.8-14.3) Platelet Count 137 10^3/uL (140-450) Mean Platelet Volume 10.5 fL (6.9-10.8) Neutrophils (%) (Auto) 76.6 % (37.0-80.0) Lymphocytes (%) (Auto) 13.3 % (10.0-50.0) Monocytes (%) (Auto) 8.6 % (0.0-12.0) Eosinophils (%) (Auto) 0.7 % (0.0-7.0) Basophils (%) (Auto) 0.8 % (0.0-2.0) Neutrophils # (Auto) 8.5 10 ^3/uL (1.6-8.6) Lymphocytes # (Auto) 1.5 10 ^3/uL (0.4-5.4) Monocytes # (Auto) 1.0 10 ^3/uL (0-1.3) Eosinophils # (Auto) 0.1 10 ^3/uL (0-0.8) Basophils # (Auto) 0.1 10 ^3/uL (0-0.2) Nucleated Red Blood Cells 0.0 % Sodium Level 141 mmol/L (136-145) Potassium Level 3.1 mmol/L (3.5-5.1) Chloride Level 113 mmol/L (98-107) Carbon Dioxide Level 18 mmol/L (20-31) Anion Gap 10 (5-15) Blood Urea Nitrogen 5 mg/dL (9-23) Creatinine 0.59 mg/dL (0.700-1.30) Glomerular Filtration Rate Calc 112 mL/min (>90) BUN/Creatinine Ratio 8.5 (10.0-20.0) Serum Glucose 128 mg/dL (74-106) Calcium Level 8.6 mg/dL (8.7-10.4) Magnesium Level 1.9 mg/dL (1.6-2.6) Total Bilirubin 1.0 mg/dL (0.2-1.0) Aspartate Amino Transferase (AST) 44 U/L (13-40) Alanine Aminotransferase (ALT) 53 U/L (7-40) Alkaline Phosphatase 91 U/L (46-116) Total Protein 7.0 g/dL (5.7-8.2) Albumin 3.9 g/dL (3.2-4.8) Lactic Acid Level 0.9 mmol/L (0.4-2.0) Folic Acid 19.75 ng/mL (>5.38) Troponin I High Sensitivity 20 ng/L (</=54) Vitamin B12 Level 373 pg/mL (211-911) Thyroid Stimulating Hormone (TSH) 0.67 uIU/mL (0.55-4.78) Test 04/22/25 19:56 04/22/25 18:53 Urine Color Colorless (Yellow) Urine Clarity Clear (Clear) Urine pH 6.0 (5.0-9.0) Urine Specific Golden 1.004 (1.001-1.035) Urine Protein Negative (Negative) Urine Ketones Negative (Negative) Urine Blood Negative /uL (Negative) Urine Nitrite Negative (Negative) Urine Bilirubin Negative (Negative) Urine Urobilinogen Normal mg/dL (Negative) Urine Leukocyte Esterase Negative /uL (Negative) Urine RBC 1 /hpf (0 - 3) Urine Microscopic WBC < 1 /HPF (0-3) Urine Squamous Epithelial Cells None seen /hpf (<5) Urine Bacteria None seen /hpf (None Seen) Urine Glucose Normal mg/dL (Normal) Urine Opiates Screen Neg (NEGATIVE) Urine Fentanyl Screen Neg (NEGATIVE) Urine Barbiturates Screen Neg (NEGATIVE) Urine Phencyclidine Screen Neg (NEGATIVE) Urine Amphetamines Screen Neg (NEGATIVE) Urine Benzodiazepines Screen Neg (NEGATIVE) Urine Cocaine Screen Neg (NEGATIVE) Urine Cannabinoids Screen Pos (NEGATIVE) B-Type Natriuretic Peptide 83.08 pg/mL (0-100) Plasma/Serum Blood Alcohol 390.2 mg/dL (<10) Other Laboratory Tests 04/24/25 06:00 Brief Hx & Hospital Course: Patient is 59 years old male with past medical history of hypertension, history of multiple stroke, hyperlipidemia, alcohol use disorder was brought in [facility] due to altered mental status.As per ED physician 59 year old male presents to the ED via EMS with a chief complaint of ALOC onset today (04/22/25). Per EMS, patient is from [facility] assisted living facility, staff noticed patient began experiencing slurred speech around 14:00, around 17:30 they found patient altered. EMS also states patients BG was 109, pupils were reactive, dilated, patient had a strong ETOH smell, staff stated patient took [place] for pain. Upon ED arrival, patient is altered, responses to sternal rub. Patient is a poor historian, not answering questions.Lab workup revealed lactic acidosis with a lactic acid 2.5> 2.3> 2.5, transaminitis with AST 57, ALT 68. UDS positive for cannabinoids, plasma alcohol 390. Urinalysis negative for UTI. CTA negative for acute intracranial abnormality. Ultrasound of the liver revealed hepatic steatosis. CXR no acute abnormality. Echo 2D revealed LVEF 50%, moderate LVH. Left atrial enlarged. Hospital course-during hospital course patient was treated conservatively, patient was on CIWA protocol. Patient's symptom improved, patient is awake and oriented x4. Patient was discharged to prior living facility. Patient was hemodynamically stable on discharge. Assessment and plan # acute metabolic encephalopathy likely due to alcohol intoxication # acute toxic encephalopathy due to above # acute alcohol intoxication with alcohol poisoning # CAD, status post CABG # history of CVA # hepatic steatosis # hypertension # hyperlipidemia # history of atrial fibrillation # substance use disorder- marijuana Plan Resume home medications Patient was counseled about the effect of alcoholism on health Please follow up with labs CBC, CMP, magnesium in 1 week with your MD at facility/primary care physician Patient was discharged to prior living facility Patient was advised to follow up with the primary care physician in 1-2 weeks//MD at facility Operations or Procedures [address] - [address] Ph: [phone] DIAGNOSTIC IMAGING Diagnostic Imaging Report : [id number] Signed PATIENT: ANGELLA RUBY ACCT: [id number] UNIT: [id number] : 1965 LOC: ER ROOM / BED: / AGE / SEX: 59 / M ADM STATUS: REG ER SERVICE 06 ORDERING PHYSICIAN: STEWART PRECIADO DO PROCEDURE(s): HWOCT - HEAD WITHOUT CONTRAST REASON: ALOC ORDER NUMBER(s): [id number], ACCESSION NUMBER(s): [id number] COMPUTERIZED TOMOGRAPHY OF THE HEAD WITHOUT CONTRAST REASON FOR STUDY: ALOC COMPARISON: CT CERVICAL WITHOUT CONTRAST on DOS: 10/13/24, CT HEAD WITHOUT CONTRAST on DOS: 10/13/24 TECHNIQUE: Helical tomographic scans were obtained through the brain. 2-D coronal and sagittal reformatted images are provided. Radiation optimization: All CT scans at this facility use at least one of these dose optimization techniques: Automated exposure control mA and/or kV adjustment per patient size (includes targeted exams where dose is matched to clinical indication) or iterative reconstruction. RADIATION DOSE: CTDI: 57 mGy DLP: 1022 mGy-cm FINDINGS: No suspicious intracranial hyperdensity to suggest acute blood. There is an old lacunar infarct in the right thalamus. There is no mass effect nor midline shift. There is no hydrocephalus. The suprasellar cistern is intact. The calvarium is intact. The visualized mastoid air cells and paranasal sinuses are clear. IMPRESSION: No acute intracranial abnormality. ATED BY: JEFFREY DIAS MD DICTATED DATE/TIME: 04/22/251942 SIGNED BY: JEFFREY DIAS MD SIGNED DATE/TIME: 04/22/251942 CC: [facility] [id number] [facility] [address] Ph: [phone] DIAGNOSTIC IMAGING Diagnostic Imaging Report : [id number] Signed PATIENT: ANGELLA RUBY ACCT: [id number] UNIT: [id number] : 1965 LOC: OVERFLOW ROOM / BED: 1016-ERT / A AGE / SEX: 59 / M ADM STATUS: ADM IN SERVICE ORDERING PHYSICIAN: MY FERGUSON RESIDENT PROCEDURE(s): LIVUS - LIVER REASON: alcoholic liver disease ORDER NUMBER(s): [id number], ACCESSION NUMBER(s): [id number] INDICATION: alcoholic liver disease TECHNIQUE: Multiple real-time sonographic images were obtained of the right upper quadrant. COMPARISON: None FINDINGS: The liver demonstrates diffusely increased echotexture without focal mass lesions. The liver measures 14.6 cm. Normal hepatopetal portal flow identified. No evidence of abdominal ascites or pleural effusion. There is no intrahepatic or extrahepatic ductal dilatation. The common duct was not adequately visualized. The gallbladder is without evidence of stone or sludge. The gallbladder wall measures 0.3 cm and is within normal limits. The right kidney measures 12.1 cm. The right kidney is normal in contour, size, and shape. The echogenicity is normal. There is no hydronephrosis. The pancreas is not well visualized due to overlying bowel gas. IMPRESSION: 1. Hepatic steatosis. Otherwise, unremarkable right upper quadrant abdominal ultrasound. ATED BY: JERONIMO SCHAEFFER MD DICTATED DATE/TIME: 04/23/25206 SIGNED BY: JERONIMO SCHAEFFER MD SIGNED DATE/TIME: 04/23/25206 CC: Condition at Discharge: Stable Final Diagnosis/Problems List # acute metabolic encephalopathy likely due to alcohol intoxication # acute toxic encephalopathy due to above # acute alcohol intoxication with alcohol poisoning # CAD, status post CABG # history of CVA # hypertension # hyperlipidemia # history of atrial fibrillation # substance use disorder -UDS positive for marijuana Discharge Disposition: Assisted Living Facility Discharge Instruct/Medications Diet: Cardiac 2g Na,low cholest Activity: No Restrictions, As Tolerated Follow Up/Referral: Please follow up with the primary care physician/MD at facility in 1-2 weeks Medications: Please resume home medications Scheduled Aripiprazole (Abilify), 5 MG PO HS, (Reported) Aspirin (Aspir-Low), 81 MG PO DAILY, (Reported) Atorvastatin Calcium (Atorvastatin Calcium), 1 TAB PO HS, (Reported) Bacitracin (Bacitracin Oint), 1 APPLIC TOP TID Fluticasone Propionate (Fluticasone Propionate), 50 MCG MARJORIE BID, (Reported) Furosemide (Lasix), 40 MG PO DAILY, (Reported) Gabapentin (Gabapentin), 400 MG PO TID, (Reported) Loperamide Hcl (Anti-Diarrheal), 2 MG PO Q6HPRN, (Reported) Loratadine (Claritin), 1 TAB PO DAILY, (Reported) Lorazepam (Ativan), 1 MG PO Q6HPRN, (Reported) Losartan Potassium (Losartan Potassium), 12.5 MG PO DAILY, (Reported) Metoprolol Succinate (Metoprolol Succinate Er), 12.5 MG PO DAILY, (Reported) Ondansetron HCl (Ondansetron), 4 MG PO Q8HPRN, (Reported) Oxycodone W/ Acetaminophen (Percocet 5/325MG), 1 TAB PO QID, (Reported) Pantoprazole Sodium Sesquihydr (Protonix), 40 MG PO DAILY, (Reported) Potassium Chloride (Potassium Chloride Cr), 20 TAB PO DAILY Sertraline Hcl (Zoloft), 1 TAB PO DAILY, (Reported) Spironolactone (Aldactone), 1 TAB PO DAILY, (Reported) Topiramate (Topamax), 1 TAB PO BID, (Reported) Trazodone Hcl (Trazodone Hcl), 50 MG PO HS, (Reported) Zolpidem Tartrate (Ambien), 5 MG PO HS, (Reported) Scheduled PRN Acetaminophen (Acetaminophen), 650 MG PO Q6HPRN PRN for MILD PAIN, (Reported) Melatonin (Kp Melatonin), 6 MG PO HS PRN for FOR INSOMNIA, (Reported) Discharge Statement: "Patient was advised to return to the ER or call 911 if any headaches, dizziness, shortness of breath, chest pain, abdominal pain, bleeding, fevers, or worsening of medical condition. Patient was counseled about treatment plan, medications, possible side effects, patientverbalized understanding. All questions were answered to the best of my ability. This discharge took greater then 30 minutes in planning, reviewing documentation, counseling the patient, and discussing with other team members." ASSESSMENT ASSESSMENT Assessment Acute metabolic encephalopathy likely due to acute alcohol intoxication LUIGI THOMAS RESIDENT Apr 24, 2025 16:52
[2025-04-28 12:07] LABS: Vitamin B1, Whole Blood 137.9 nmol/L (66.5-200.0)
== END 2025-04-24 20:47 | disposition home or self-care (01) | DRG 816 ==
LOC: EDBD 18:06 → ER 18:06 → OVERFLOW 23:29 → TELE-CENTR 04-23 12:19
PROVIDERS: ADMIT Student in an Organized Health Care Education/Training Program; ATTEND Emergency Medicine
DX: T51.0X1A Toxic effect of ethanol, accidental (unintentional), initial encounter (principal); G92.8 Other toxic encephalopathy; G93.41 Metabolic encephalopathy; E87.20 Acidosis, unspecified; I10 Essential (primary) hypertension; F10.129 Alcohol abuse with intoxication, unspecified; F19.10 Other psychoactive substance abuse, uncomplicated; F10.139 Alcohol abuse with withdrawal, unspecified; K76.0 Fatty (change of) liver, not elsewhere classified; E78.5 Hyperlipidemia, unspecified; I48.91 Unspecified atrial fibrillation; I25.10 Atherosclerotic heart disease of native coronary artery without angina pectoris; F17.210 Nicotine dependence, cigarettes, uncomplicated; F12.90 Cannabis use, unspecified, uncomplicated; R74.01 Elevation of levels of liver transaminase levels; Z79.82 Long term (current) use of aspirin; Z95.1 Presence of aortocoronary bypass graft; Z86.73 Personal history of transient ischemic attack (TIA), and cerebral infarction without residual deficits; Y92.89 Other specified places as the place of occurrence of the external cause; Y90.8 Blood alcohol level of 240 mg/100 ml or more
CPT/HCPCS: 36415; 70450; 71045; 76705; 80053; 80307; 80320; 81001; 82607; 82746; 83605; 83735; 83880; 84425; 84443; 84484; 85025; 93005; 93306; 96374; G0378; J7060